=== PATIENT | female | born 1995 | race Caucasian/White ===

== ENCOUNTER 2022-06-21 16:38 | Emergency (ER) | payer OTHER ==
[~2022-06-21] VITALS: Ht 160 cm; Wt 59.4 kg
[2022-06-21 16:54] VITALS: BP 116/82
[2022-06-21] MEDS ORDERED: IBUPROFEN 800 MG TAB PO ONE (19:10)
[2022-06-21] MEDS ORDERED: IBUPROFEN 800 MG TAB ONE (20:22)
[2022-06-21] MEDS ORDERED: IBUP-2218 PO (20:24)
[2022-06-21] MEDS ORDERED: BACI-416 TP (20:24)
[2022-06-21] MEDS ORDERED: BACITRACIN OINT 500 UNITS/GM PKT TP ONE (20:36)
[2022-06-21 20:44] VITALS: BP 112/82
--- NOTE | 2022-06-21 20:44 | NUR ---
Patient discharged with v/s stable. Written and verbal after care instructions given and explained. Patient alert, oriented and verbalized understanding of instructions. Ambulatory with steady gait. All questions addressed prior to discharge. ID band removed. Patient advised to follow up with PMD. Rx of Bacitracin and Ibuprofen given. Patient educated on indication of medication including possible reaction and side effects. Opportunity to ask questions provided and answered.
[2022-06-22] MEDS ORDERED: BACITRACIN ZINC/POLYMYXIN B OINT 30 GM TUBE TP SCH (09:00)
== END 2022-06-21 20:44 | disposition home or self-care (01) ==
LOC: MED 16:38
DX: S80.12XA Contusion of left lower leg, initial encounter (principal); S80.11XA Contusion of right lower leg, initial encounter; S09.90XA Unspecified injury of head, initial encounter; V49.88XA Car occupant (driver) (passenger) injured in other specified transport accidents, initial encounter; Y93.89 Activity, other specified; Y92.89 Other specified places as the place of occurrence of the external cause; Y99.8 Other external cause status
CPT/HCPCS: 73590; 81025; 90471; 90715; 99283